=== PATIENT | female | born 1950 | race Caucasian/White ===

== ENCOUNTER 2020-04-17 16:26 | Inpatient (IN) ==
[2020-04-17] MEDS: Latanoprost 2.5 ML BOTTLE BOTH EYES SCH (22:37)
[2020-04-17] MEDS: lisinopriL 20 MG TABLET PO SCH (22:37)
[2020-04-17] MEDS: *HR* HYDROcodone/Acet 5/325 mg TABLET PO PRN (22:37)
[2020-04-17] MEDS: Pregabalin 75 MG CAPSULE PO SCH (22:37)
[2020-04-18 05:41] LABS: Calcium 9.3 mg/dL (8.6-10.3)
[2020-04-18] MEDS: *HR* HYDROcodone/Acet 5/325 mg TABLET PO PRN ×2 (06:46→17:05)
[2020-04-18] MEDS: *HR* Heparin 5,000 UNIT/ML VIAL SQ SCH ×2 (06:46→17:01)
[2020-04-18] MEDS: calcitrioL 0.25 MCG CAPSULE PO SCH (08:49)
[2020-04-18] MEDS: amLODIPine 5 MG TABLET PO SCH (08:49)
[2020-04-18] MEDS: Pregabalin 75 MG CAPSULE PO SCH ×2 (08:49→20:06)
[2020-04-18] MEDS: Metoprolol XL (24 HR) Succ 50 MG TAB.ER.24H PO SCH (08:49)
[2020-04-18] MEDS: lisinopriL 20 MG TABLET PO SCH ×2 (08:50→20:02)
[2020-04-18] MEDS: Venlafaxine XR (24 HR) 75 MG CAP.ER.24H PO SCH (08:50)
[2020-04-18] MEDS: *HR* Glimepiride 2 MG TABLET PO SCH (08:51)
[2020-04-18] MEDS ORDERED: Naltrexone HCl 50 MG TABLET PO SCH (09:00)
[2020-04-18] MEDS: NON-FORMULARY MEDICATION 1 EACH EACH (Metformin Hcl [Glucophage] 1,000 MG) PO SCH (11:10)
[2020-04-18] MEDS ORDERED: *HR* Dextrose 50 % in Water (Vial) 50 ML VIAL IVP PRN (16:45)
[2020-04-18] MEDS ORDERED: Dextrose Gel 15 GM/37.5 ML TUBE PO PRN ×2 (16:45)
[2020-04-18] MEDS ORDERED: D5% in Water 1,000 ML IVC PRN (16:45)
[2020-04-18] MEDS: Latanoprost 2.5 ML BOTTLE BOTH EYES SCH (20:08)
[2020-04-18] MEDS: Insulin LISPRO 300 UNITS/3 ML VIAL SQ SCH (21:12)
[2020-04-19] MEDS: *HR* Heparin 5,000 UNIT/ML VIAL SQ SCH ×2 (05:35→17:29)
[2020-04-19] MEDS: *HR* HYDROcodone/Acet 5/325 mg TABLET PO PRN (05:36)
[2020-04-19] MEDS: Insulin LISPRO 300 UNITS/3 ML VIAL SQ SCH ×4 (08:33→22:52)
[2020-04-19] MEDS: calcitrioL 0.25 MCG CAPSULE PO SCH (08:35)
[2020-04-19] MEDS: Venlafaxine XR (24 HR) 75 MG CAP.ER.24H PO SCH (08:35)
[2020-04-19] MEDS: Metoprolol XL (24 HR) Succ 50 MG TAB.ER.24H PO SCH (08:36)
[2020-04-19] MEDS: lisinopriL 20 MG TABLET PO SCH ×2 (08:36→22:52)
[2020-04-19] MEDS: Pregabalin 75 MG CAPSULE PO SCH ×2 (08:36→22:52)
[2020-04-19] MEDS: amLODIPine 5 MG TABLET PO SCH (08:36)
[2020-04-19] MEDS: *HR* Glimepiride 2 MG TABLET PO SCH (08:37)
[2020-04-19] MEDS ORDERED: Bisacodyl 10 MG RECTAL SUPPOSITORY RC ONE (12:00)
[2020-04-19] MEDS: Latanoprost 2.5 ML BOTTLE BOTH EYES SCH (22:53)
[2020-04-20] MEDS: *HR* Heparin 5,000 UNIT/ML VIAL SQ SCH ×2 (05:34→17:02)
[2020-04-20] MEDS: *HR* HYDROcodone/Acet 5/325 mg TABLET PO PRN (05:34)
[2020-04-20 05:57] LABS: Basophils % 0.4 %; Eosinophils # 0.2 K/mcL (0.0-0.6); Eosinophils % 3.2 %; Hematocrit 28.1 % (35.3-44.9); Hemoglobin 9.3 g/dL (11.5-15.4); Lymphocytes # 1.9 K/mcL (0.6-4.6); Lymphocytes % 26.7 %; Mean Corpuscular HGB Conc 33.1 g/dL (31.6-35.5); Mean Corpuscular Hemoglobin 29.8 pg (28.0-33.3); Mean Corpuscular Volume 90.1 fL (83.0-100.0); Mean Platelet Volume 9.3 fL (9.4-12.4); Monocytes # 0.9 K/mcL (0.0-1.3); Monocytes % 12.6 %; Platelet Count 348 K/mcL (140-400); Red Blood Count 3.12 M/mcL (3.82-4.97); Red Cell Distribution Width 12.9 % (11.5-14.5); Segmented Neutrophils % 56.1 %; White Blood Count 7.2 K/mcL (4.3-11.1)
[2020-04-20 06:30] LABS: Calcium 9.8 mg/dL (8.6-10.3); Potassium 4.1 mEq/L (3.5-5.1)
[2020-04-20] MEDS: Insulin LISPRO 300 UNITS/3 ML VIAL SQ SCH ×4 (07:39→21:41)
[2020-04-20] MEDS: *HR* Glimepiride 2 MG TABLET PO SCH (08:11)
[2020-04-20] MEDS: calcitrioL 0.25 MCG CAPSULE PO SCH (08:11)
[2020-04-20] MEDS: Pregabalin 75 MG CAPSULE PO SCH ×2 (08:11→21:49)
[2020-04-20] MEDS: amLODIPine 5 MG TABLET PO SCH (08:11)
[2020-04-20] MEDS: Venlafaxine XR (24 HR) 75 MG CAP.ER.24H PO SCH (08:11)
[2020-04-20] MEDS: lisinopriL 20 MG TABLET PO SCH ×2 (08:12→21:49)
[2020-04-20] MEDS: Metoprolol XL (24 HR) Succ 50 MG TAB.ER.24H PO SCH (08:12)
[2020-04-20] MEDS ORDERED: Ondansetron ODT 4 MG TAB.RAPDIS SL PRN (10:44)
[2020-04-20 17:45] LABS: Bilirubin,Urine Negative (Negative); Blood,Urine Negative (Negative); Clarity,Urine Clear (Clear); Color,Urine Yellow (Yellow); Glucose,Urine (UA) Normal (Normal); Ketones,Urine Negative (Negative); Leukocyte Esterase,Urine Negative (Negative); Nitrite,Urine Negative (Negative); PH,Urine 6.5 pH Units (5.0-8.0); Protein,Urine 30 mg/dL (Neg-Trace)
[2020-04-20 17:50] LABS: Bacteria,Urine Few per hpf (None-Few); Squamous Epithelial Cell,Urine Few per hpf (None-Few); WBC,Urine 0-3 per hpf (0-3)
[2020-04-20] MEDS ORDERED: Acetaminophen 325 MG TABLET PO PRN (19:11)
[2020-04-20] MEDS: Latanoprost 2.5 ML BOTTLE BOTH EYES SCH (21:48)
[2020-04-21 05:04] LABS: Hematocrit 26.7 % (35.3-44.9); Hemoglobin 8.9 g/dL (11.5-15.4); Mean Corpuscular HGB Conc 33.3 g/dL (31.6-35.5); Mean Corpuscular Hemoglobin 29.7 pg (28.0-33.3); Platelet Count 331 K/mcL (140-400); Red Cell Distribution Width 13.2 % (11.5-14.5); White Blood Count 9.4 K/mcL (4.3-11.1)
[2020-04-21 05:19] LABS: Albumin 3.4 g/dL (3.5-5.7); Albumin/Globulin Ratio 1.1 (1.1-2.2); Bilirubin,Total 0.7 mg/dL (0.3-1.0); Calcium 9.3 mg/dL (8.6-10.3); Globulin 3.1 g/dL (2.4-3.5); Potassium 3.8 mEq/L (3.5-5.1); Total Protein 6.5 g/dL (6.4-8.9)
[2020-04-21] MEDS: *HR* Heparin 5,000 UNIT/ML VIAL SQ SCH ×2 (05:46→17:17)
[2020-04-21 05:52] LABS: Thyroid Stimulating Hormone 0.433 mcIU/mL (0.340-5.600)
[2020-04-21] MEDS: Insulin LISPRO 300 UNITS/3 ML VIAL SQ SCH ×4 (07:43→21:30)
[2020-04-21] MEDS ORDERED: 0.9 % Sodium Chloride 1,000 ML ONE (09:53)
[2020-04-21] MEDS ORDERED: 0.9 % Sodium Chloride 1,000 ML IV ONE (09:54)
[2020-04-21] MEDS: amLODIPine 5 MG TABLET PO SCH (11:28)
[2020-04-21] MEDS: lisinopriL 20 MG TABLET PO SCH (11:28)
[2020-04-21] MEDS: Metoprolol XL (24 HR) Succ 50 MG TAB.ER.24H PO SCH (11:28)
[2020-04-21] MEDS: calcitrioL 0.25 MCG CAPSULE PO SCH (11:29)
[2020-04-21] MEDS: Pregabalin 75 MG CAPSULE PO SCH ×2 (11:42→21:28)
[2020-04-21] MEDS: *HR* Glimepiride 2 MG TABLET PO SCH (11:42)
[2020-04-21] MEDS: Venlafaxine XR (24 HR) 75 MG CAP.ER.24H PO SCH (11:42)
[2020-04-21] MEDS: lisinopriL 10 MG TABLET PO SCH (21:29)
[2020-04-21] MEDS: Latanoprost 2.5 ML BOTTLE BOTH EYES SCH (21:29)
[2020-04-22] MEDS: *HR* Heparin 5,000 UNIT/ML VIAL SQ SCH ×2 (04:53→17:54)
[2020-04-22 06:13] LABS: Hematocrit 25.3 % (35.3-44.9); Hemoglobin 8.1 g/dL (11.5-15.4); Mean Corpuscular Hemoglobin 29.1 pg (28.0-33.3); Mean Platelet Volume 9.2 fL (9.4-12.4); Platelet Count 332 K/mcL (140-400); Red Blood Count 2.78 M/mcL (3.82-4.97); Red Cell Distribution Width 13.1 % (11.5-14.5); White Blood Count 6.9 K/mcL (4.3-11.1)
[2020-04-22 06:32] LABS: Calcium 8.8 mg/dL (8.6-10.3); Potassium 3.5 mEq/L (3.5-5.1)
[2020-04-22] MEDS: Insulin LISPRO 300 UNITS/3 ML VIAL SQ SCH ×4 (07:37→21:00)
[2020-04-22] MEDS: Venlafaxine XR (24 HR) 75 MG CAP.ER.24H PO SCH (08:40)
[2020-04-22] MEDS: Pregabalin 75 MG CAPSULE PO SCH ×2 (08:40→21:00)
[2020-04-22] MEDS: lisinopriL 10 MG TABLET PO SCH ×2 (08:41→21:00)
[2020-04-22] MEDS: amLODIPine 5 MG TABLET PO SCH (08:41)
[2020-04-22] MEDS: Metoprolol XL (24 HR) Succ 50 MG TAB.ER.24H PO SCH (10:38)
[2020-04-22] MEDS: *HR* Glimepiride 2 MG TABLET PO SCH (10:39)
[2020-04-22] MEDS: calcitrioL 0.25 MCG CAPSULE PO SCH (10:39)
[2020-04-22 14:06] LABS: Folate > 22.3 ng/mL (3.0-16.0); Vitamin B12 > 1500 pg/mL (250-1100)
[2020-04-22] MEDS: Latanoprost 2.5 ML BOTTLE BOTH EYES SCH (21:00)
[2020-04-23] MEDS: *HR* HYDROcodone/Acet 5/325 mg TABLET PO PRN ×2 (03:23→21:25)
[2020-04-23] MEDS: *HR* Heparin 5,000 UNIT/ML VIAL SQ SCH ×2 (06:24→17:15)
[2020-04-23] MEDS: Pregabalin 75 MG CAPSULE PO SCH ×2 (09:21→21:19)
[2020-04-23] MEDS: Insulin LISPRO 300 UNITS/3 ML VIAL SQ SCH ×4 (09:21→21:18)
[2020-04-23] MEDS: Metoprolol XL (24 HR) Succ 50 MG TAB.ER.24H PO SCH (09:21)
[2020-04-23] MEDS: amLODIPine 5 MG TABLET PO SCH (09:22)
[2020-04-23] MEDS: Venlafaxine XR (24 HR) 75 MG CAP.ER.24H PO SCH (09:22)
[2020-04-23] MEDS: lisinopriL 10 MG TABLET PO SCH ×2 (10:34→21:19)
[2020-04-23] MEDS: calcitrioL 0.25 MCG CAPSULE PO SCH (10:34)
[2020-04-23] MEDS: *HR* Glimepiride 2 MG TABLET PO SCH (10:34)
[2020-04-23] MEDS: Melatonin 3 MG TABLET PO PRN (21:19)
[2020-04-23] MEDS: Latanoprost 2.5 ML BOTTLE BOTH EYES SCH (21:19)
[2020-04-24 05:36] LABS: Hematocrit 26.5 % (35.3-44.9); Hemoglobin 8.6 g/dL (11.5-15.4); Mean Corpuscular HGB Conc 32.5 g/dL (31.6-35.5); Mean Corpuscular Hemoglobin 29.5 pg (28.0-33.3); Mean Corpuscular Volume 90.8 fL (83.0-100.0); Mean Platelet Volume 8.9 fL (9.4-12.4); Platelet Count 356 K/mcL (140-400); Red Blood Count 2.92 M/mcL (3.82-4.97); Red Cell Distribution Width 13.2 % (11.5-14.5); White Blood Count 5.9 K/mcL (4.3-11.1)
[2020-04-24 05:50] LABS: Calcium 9.8 mg/dL (8.6-10.3); Magnesium 1.8 mg/dL (1.6-2.6); Potassium 4.4 mEq/L (3.5-5.1)
[2020-04-24] MEDS: *HR* Heparin 5,000 UNIT/ML VIAL SQ SCH ×2 (06:37→17:52)
[2020-04-24] MEDS: Insulin LISPRO 300 UNITS/3 ML VIAL SQ SCH ×4 (08:13→20:03)
[2020-04-24] MEDS: calcitrioL 0.25 MCG CAPSULE PO SCH (08:19)
[2020-04-24] MEDS: Pregabalin 75 MG CAPSULE PO SCH ×2 (08:19→20:01)
[2020-04-24] MEDS: Venlafaxine XR (24 HR) 75 MG CAP.ER.24H PO SCH (08:19)
[2020-04-24] MEDS: lisinopriL 10 MG TABLET PO SCH ×2 (08:19→20:01)
[2020-04-24] MEDS: *HR* Glimepiride 2 MG TABLET PO SCH (08:19)
[2020-04-24] MEDS: amLODIPine 5 MG TABLET PO SCH (08:19)
[2020-04-24] MEDS: Metoprolol XL (24 HR) Succ 50 MG TAB.ER.24H PO SCH (08:19)
[2020-04-24] MEDS: Latanoprost 2.5 ML BOTTLE BOTH EYES SCH (20:02)
[2020-04-24] MEDS: Melatonin 3 MG TABLET PO PRN (20:08)
[2020-04-25] MEDS: *HR* Heparin 5,000 UNIT/ML VIAL SQ SCH ×2 (05:32→17:12)
[2020-04-25] MEDS: Metoprolol XL (24 HR) Succ 50 MG TAB.ER.24H PO SCH (08:04)
[2020-04-25] MEDS: Venlafaxine XR (24 HR) 75 MG CAP.ER.24H PO SCH (08:04)
[2020-04-25] MEDS: *HR* Glimepiride 2 MG TABLET PO SCH (08:04)
[2020-04-25] MEDS: Pregabalin 75 MG CAPSULE PO SCH ×2 (08:04→20:06)
[2020-04-25] MEDS: lisinopriL 10 MG TABLET PO SCH ×2 (08:04→20:07)
[2020-04-25] MEDS: amLODIPine 5 MG TABLET PO SCH (08:04)
[2020-04-25] MEDS: calcitrioL 0.25 MCG CAPSULE PO SCH (08:04)
[2020-04-25] MEDS: Insulin LISPRO 300 UNITS/3 ML VIAL SQ SCH ×4 (08:05→20:07)
[2020-04-25] MEDS: Melatonin 3 MG TABLET PO PRN (20:08)
[2020-04-25] MEDS: Latanoprost 2.5 ML BOTTLE BOTH EYES SCH (20:09)
[2020-04-26] MEDS: *HR* Heparin 5,000 UNIT/ML VIAL SQ SCH ×2 (05:34→17:46)
[2020-04-26] MEDS: Insulin LISPRO 300 UNITS/3 ML VIAL SQ SCH ×4 (07:56→21:06)
[2020-04-26] MEDS: Venlafaxine XR (24 HR) 75 MG CAP.ER.24H PO SCH (08:00)
[2020-04-26] MEDS: Pregabalin 75 MG CAPSULE PO SCH ×2 (08:00→21:05)
[2020-04-26] MEDS: Metoprolol XL (24 HR) Succ 50 MG TAB.ER.24H PO SCH (08:00)
[2020-04-26] MEDS: lisinopriL 10 MG TABLET PO SCH ×2 (08:00→21:04)
[2020-04-26] MEDS: amLODIPine 5 MG TABLET PO SCH (08:00)
[2020-04-26] MEDS: calcitrioL 0.25 MCG CAPSULE PO SCH (08:00)
[2020-04-26] MEDS: *HR* Glimepiride 2 MG TABLET PO SCH (08:00)
[2020-04-26] MEDS ORDERED: Bisacodyl 10 MG RECTAL SUPPOSITORY RC ONE (16:00)
[2020-04-26] MEDS ORDERED: polyethylene glycoL 3350 17 GM POWD.PACK PO PRN (19:00)
[2020-04-26] MEDS: Melatonin 3 MG TABLET PO PRN (21:05)
[2020-04-26] MEDS: Bisacodyl 10 MG RECTAL SUPPOSITORY RC SCH (21:06)
[2020-04-26] MEDS: Latanoprost 2.5 ML BOTTLE BOTH EYES SCH (21:35)
[2020-04-27] MEDS: *HR* Heparin 5,000 UNIT/ML VIAL SQ SCH ×2 (05:07→17:18)
[2020-04-27] MEDS: Insulin LISPRO 300 UNITS/3 ML VIAL SQ SCH ×4 (07:42→21:03)
[2020-04-27] MEDS: Metoprolol XL (24 HR) Succ 50 MG TAB.ER.24H PO SCH (07:53)
[2020-04-27] MEDS: *HR* Glimepiride 2 MG TABLET PO SCH (07:53)
[2020-04-27] MEDS: Venlafaxine XR (24 HR) 75 MG CAP.ER.24H PO SCH (07:54)
[2020-04-27] MEDS: amLODIPine 5 MG TABLET PO SCH (07:54)
[2020-04-27] MEDS: lisinopriL 10 MG TABLET PO SCH ×2 (07:54→21:03)
[2020-04-27] MEDS: *HR* HYDROcodone/Acet 5/325 mg TABLET PO PRN (07:54)
[2020-04-27] MEDS: Pregabalin 75 MG CAPSULE PO SCH ×2 (07:54→21:03)
[2020-04-27] MEDS: calcitrioL 0.25 MCG CAPSULE PO SCH (07:54)
[2020-04-27] MEDS ORDERED: Bisacodyl 10 MG RECTAL SUPPOSITORY RC ONE (16:00)
[2020-04-27] MEDS: Bisacodyl 10 MG RECTAL SUPPOSITORY RC SCH (21:03)
[2020-04-27] MEDS: Latanoprost 2.5 ML BOTTLE BOTH EYES SCH (21:04)
[2020-04-27] MEDS: Melatonin 3 MG TABLET PO PRN (21:04)
[2020-04-28] MEDS: *HR* Heparin 5,000 UNIT/ML VIAL SQ SCH (05:51)
[2020-04-28 07:55] VITALS: BP 153/76
[2020-04-28] MEDS: amLODIPine 5 MG TABLET PO SCH (08:32)
[2020-04-28] MEDS: calcitrioL 0.25 MCG CAPSULE PO SCH (08:32)
[2020-04-28] MEDS: lisinopriL 10 MG TABLET PO SCH (08:32)
[2020-04-28] MEDS: Metoprolol XL (24 HR) Succ 50 MG TAB.ER.24H PO SCH (08:32)
[2020-04-28] MEDS: *HR* HYDROcodone/Acet 5/325 mg TABLET PO PRN (08:32)
[2020-04-28] MEDS: *HR* Glimepiride 2 MG TABLET PO SCH (08:33)
[2020-04-28] MEDS: Venlafaxine XR (24 HR) 75 MG CAP.ER.24H PO SCH (08:33)
[2020-04-28] MEDS: Pregabalin 75 MG CAPSULE PO SCH (08:33)
[2020-04-28] MEDS: Insulin LISPRO 300 UNITS/3 ML VIAL SQ SCH ×2 (08:35→11:59)
== END 2020-04-28 15:40 | disposition home health service (06) | DRG 560 ==
LOC: INPGRE 19:41
PROVIDERS: ADMIT Family Medicine; ATTEND Family Medicine

== ENCOUNTER 2021-10-22 14:21 | Inpatient (IN) ==
[2021-10-22] MEDS ORDERED: D5% in Water 1,000 ML IVC PRN (16:45)
[2021-10-22] MEDS ORDERED: Dextrose 4 GM Chewable Tablets PO PRN ×2 (16:45)
[2021-10-22] MEDS ORDERED: *HR* Dextrose 50 % in Water (Syg) 50 ML SYRINGE IVP PRN (16:45)
[2021-10-22] MEDS: Apixaban 5 MG TABLET PO SCH (20:42)
[2021-10-22] MEDS: Pregabalin 25 MG CAPSULE PO SCH (20:42)
[2021-10-22] MEDS: Latanoprost 2.5 ML BOTTLE BOTH EYES SCH (20:57)
[2021-10-22] MEDS ORDERED: Insulin LISPRO 300 UNITS/3 ML VIAL SUBQ SCH (21:00)
[2021-10-23 04:34] LABS: Basophils % 0.4 %; Eosinophils # 0.2 K/mcL (0.0-0.6); Eosinophils % 2.6 %; Hemoglobin 8.5 g/dL (11.5-15.4); Immature Granulocytes % 0.9 % (0-4); Lymphocytes # 1.6 K/mcL (0.6-4.6); Lymphocytes % 23.1 %; Mean Corpuscular HGB Conc 30.4 g/dL (31.6-35.5); Mean Corpuscular Hemoglobin 28.7 pg (28.0-33.3); Mean Corpuscular Volume 94.6 fL (83.0-100.0); Mean Platelet Volume 8.5 fL (9.4-12.4); Monocytes # 0.8 K/mcL (0.0-1.3); Monocytes % 11.8 %; Neutrophils # 4.2 K/mcL (1.6-8.9); Platelet Count 505 K/mcL (140-400); Red Blood Count 2.96 M/mcL (3.82-4.97); Red Cell Distribution Width 18.2 % (11.5-14.5); Segmented Neutrophils % 61.2 %; White Blood Count 6.9 K/mcL (4.3-11.1)
[2021-10-23 04:50] LABS: Calcium 9.6 mg/dL (8.6-10.3); Potassium 4.6 mEq/L (3.5-5.1)
[2021-10-23] MEDS: Insulin LISPRO 300 UNITS/3 ML VIAL SUBQ SCH ×2 (07:30→12:23)
[2021-10-23] MEDS: Metoprolol XL (24 HR) Succ 25 MG TAB.ER.24H PO SCH (08:19)
[2021-10-23] MEDS: *HR* Glimepiride 2 MG TABLET PO SCH (08:19)
[2021-10-23] MEDS: Vitamin B Complex/Vit C/Vit E 1 EACH TABLET PO SCH (08:19)
[2021-10-23] MEDS: amLODIPine 5 MG TABLET PO SCH (08:19)
[2021-10-23] MEDS: BuPROPion XL (24 HR) 150 MG TABLET PO SCH (08:19)
[2021-10-23] MEDS: Apixaban 5 MG TABLET PO SCH ×2 (08:20→19:50)
[2021-10-23] MEDS: Pregabalin 25 MG CAPSULE PO SCH ×3 (08:20→19:50)
[2021-10-23] MEDS: polyethylene glycoL 3350 17 GM POWD.PACK PO SCH (08:20)
[2021-10-23] MEDS: Latanoprost 2.5 ML BOTTLE BOTH EYES SCH (19:51)
[2021-10-23] MEDS: Acetaminophen 325 MG TABLET PO PRN (19:59)
[2021-10-23 20:34] LABS: Bilirubin,Urine Negative (Negative); Blood,Urine Negative (Negative); Clarity,Urine Clear (Clear); Color,Urine Yellow (Yellow); Glucose,Urine (UA) Normal (Normal); Ketones,Urine Negative (Negative); Leukocyte Esterase,Urine Trace (Negative); Nitrite,Urine Negative (Negative); Protein,Urine Negative (Neg-Trace); Urobilinogen,Urine Normal (Normal)
[2021-10-23 20:37] LABS: Bacteria,Urine Few per hpf (None-Few); Squamous Epithelial Cell,Urine Few per hpf (None-Few); WBC,Urine 0-3 per hpf (0-3)
[2021-10-24] MEDS: Metoprolol XL (24 HR) Succ 25 MG TAB.ER.24H PO SCH (08:45)
[2021-10-24] MEDS: amLODIPine 5 MG TABLET PO SCH (08:46)
[2021-10-24] MEDS: Pregabalin 25 MG CAPSULE PO SCH ×3 (08:46→19:31)
[2021-10-24] MEDS: BuPROPion XL (24 HR) 150 MG TABLET PO SCH (08:46)
[2021-10-24] MEDS: *HR* Glimepiride 2 MG TABLET PO SCH (08:46)
[2021-10-24] MEDS: Apixaban 5 MG TABLET PO SCH ×2 (08:46→19:32)
[2021-10-24] MEDS: Acetaminophen 325 MG TABLET PO PRN (08:46)
[2021-10-24] MEDS: Vitamin B Complex/Vit C/Vit E 1 EACH TABLET PO SCH (08:46)
[2021-10-24] MEDS: polyethylene glycoL 3350 17 GM POWD.PACK PO SCH (08:47)
[2021-10-24] MEDS ORDERED: *HR* OxyCODONE Immed Rel 5 MG TABLET PO PRN ×2 (14:35)
[2021-10-24] MEDS: Latanoprost 2.5 ML BOTTLE BOTH EYES SCH (19:32)
[2021-10-25] MEDS: BuPROPion XL (24 HR) 150 MG TABLET PO SCH (08:22)
[2021-10-25] MEDS: Acetaminophen 325 MG TABLET PO PRN (08:22)
[2021-10-25] MEDS: amLODIPine 5 MG TABLET PO SCH (08:22)
[2021-10-25] MEDS: *HR* Glimepiride 2 MG TABLET PO SCH (08:23)
[2021-10-25] MEDS: Vitamin B Complex/Vit C/Vit E 1 EACH TABLET PO SCH (08:24)
[2021-10-25] MEDS: polyethylene glycoL 3350 17 GM POWD.PACK PO SCH (08:24)
[2021-10-25] MEDS: Metoprolol XL (24 HR) Succ 25 MG TAB.ER.24H PO SCH (08:24)
[2021-10-25] MEDS: Apixaban 5 MG TABLET PO SCH ×2 (08:24→20:52)
[2021-10-25] MEDS: Pregabalin 25 MG CAPSULE PO SCH ×3 (08:24→20:52)
[2021-10-25] MEDS: Latanoprost 2.5 ML BOTTLE BOTH EYES SCH (20:52)
[2021-10-26 06:54] LABS: Albumin 3.2 g/dL (3.5-5.7); Albumin/Globulin Ratio 0.9 (1.1-2.2); Bilirubin,Total 0.5 mg/dL (0.3-1.0); Calcium 9.6 mg/dL (8.6-10.3); Globulin 3.5 g/dL (2.4-3.5); Magnesium 2.1 mg/dL (1.6-2.6); Potassium 4.5 mEq/L (3.5-5.1); Total Protein 6.7 g/dL (6.4-8.9)
[2021-10-26 07:33] VITALS: BP 137/73; PULSE 99; RESP 14; TEMP 98.7; O2SAT 96
[2021-10-26 07:40] LABS: Hematocrit 29.1 % (35.3-44.9); Hemoglobin 8.8 g/dL (11.5-15.4); Mean Corpuscular HGB Conc 30.2 g/dL (31.6-35.5); Platelet Count 434 K/mcL (140-400); Red Blood Count 3.03 M/mcL (3.82-4.97); Red Cell Distribution Width 17.7 % (11.5-14.5)
[2021-10-26] MEDS: amLODIPine 5 MG TABLET PO SCH (08:22)
[2021-10-26] MEDS: Vitamin B Complex/Vit C/Vit E 1 EACH TABLET PO SCH (08:22)
[2021-10-26] MEDS: Metoprolol XL (24 HR) Succ 25 MG TAB.ER.24H PO SCH (08:22)
[2021-10-26] MEDS: Apixaban 5 MG TABLET PO SCH (08:22)
[2021-10-26] MEDS: Pregabalin 25 MG CAPSULE PO SCH (08:22)
[2021-10-26] MEDS: *HR* Glimepiride 2 MG TABLET PO SCH (08:22)
[2021-10-26] MEDS: BuPROPion XL (24 HR) 150 MG TABLET PO SCH (08:23)
[2021-10-26] MEDS: polyethylene glycoL 3350 17 GM POWD.PACK PO SCH (08:23)
[2021-10-26] MEDS: Acetaminophen 325 MG TABLET PO PRN (08:25)
== END 2021-10-26 13:13 | disposition home health service (06) | DRG 560 ==
LOC: INPGRE 15:13
PROVIDERS: ADMIT Family Medicine; ATTEND Family Medicine